=== PATIENT | male | born 2000 | race Caucasian/White ===

== ENCOUNTER 2024-06-16 03:40 | Emergency (ER) | payer BC, OTHER ==
[~2024-06-16] VITALS: Ht 193 cm; Wt 93.4 kg
[2024-06-16] MEDS: KETOROLAC TROMETHAMINE 15 MG/ML VIAL IV ONE (04:04)
[2024-06-16] MEDS: IV NS 0.9% 1,000 ML BAG IV ONE (04:04)
[2024-06-16] MEDS: ONDANSETRON HCL/PF 4 MG/2 ML VIAL IVP ONE (04:05)
[2024-06-16] MEDS: METHOCARBAMOL (750MG) 750 MG TABLET PO SCH (04:05)
[2024-06-16 04:12] LABS: BASOPHILS % (AUTO) 0.4 % (0.0-2.0); EOSINOPHILS # (AUTO) 0.3 K/uL (0.0-0.7); HEMATOCRIT 47 % (39-51); HEMOGLOBIN 16.1 g/dL (13.5-17.5); LYMPHOCYTES # (AUTO) 1.8 K/uL (0.8-4.8); LYMPHOCYTES % (AUTO) 31.4 % (20.0-44.0); MEAN CORPUSCULAR HEMOGLOBIN 31 PG (26.0-33.0); MEAN CORPUSCULAR HGB CONC 35 g/dl (31.0-36.0); MEAN CORPUSCULAR VOLUME 88 fL (80-96); MONOCYTES # (AUTO) 0.4 K/uL (0.1-1.30); MONOCYTES % (AUTO) 7.5 % (2.0-12.0); NEUTROPHILS # (AUTO) 3.1 K/uL (1.8-8.9); NEUTROPHILS % (AUTO) 54.7 % (43.0-81.0); PLATELET COUNT (AUTO) 205 K/uL (150-450); RED CELL DISTRIBUTION WIDTH 12.7 % (11.5-15.0); WHITE BLOOD COUNT (AUTO) 5.6 K/uL (4.3-11.0)
[2024-06-16 04:28] LABS: CALCIUM, SERUM 8.5 mg/dL (8.5-10.1); CREATININE 1.3 mg/dL (0.6-1.3)
[2024-06-16 04:33] LABS: INR 1.08 (0.91-1.10); PARTIAL THROMBOPLASTIN TIME 24.4 SEC (24.3-34.3); PROTHROMBIN TIME 11.4 SECS (9.2-11.1)
[2024-06-16] MEDS ORDERED: LORAZEPAM INJ 2 MG/ML VIAL ONE (05:37)
[2024-06-16] MEDS: LORAZEPAM INJ 2 MG/ML VIAL IV ONE (05:45)
[2024-06-16] MEDS ORDERED: IBUP-1490 PO (05:50)
[2024-06-16] MEDS ORDERED: METH-647 PO (05:50)
[2024-06-16 06:35] VITALS: BP 140/76; TEMP 98.7; O2SAT 97
== END 2024-06-16 06:36 | disposition home or self-care (01) ==
LOC: ER 03:42
DX: M54.50 Low back pain, unspecified (principal)
CPT/HCPCS: 99285; 96374; 72131; 96375; 96361; 85025; 80048; 36415; 85730; J2060; J7030